=== PATIENT | female | born 1990 | race Caucasian/White ===

== ENCOUNTER 2023-11-23 02:56 | Emergency (ER) | payer SELFPAY ==
[2023-11-23 03:02] VITALS: BP 156/92; PULSE 88; RESP 18; TEMP 36.8; O2SAT 96; BMI 45.4
--- NOTE | 2023-11-23 03:24 | ED_ITS ---
HPI - Dental/Oral General: Chief complaint: Dental/Oral Stated complaint: Tooth Ache Time Seen by Provider: 11/23/23 03:12 History of Present Illness: 32-year-old female presents emergency de partment with complaints of dental pain to the right lower jaw. She states this has been ongoing for the previous 6 months. She states she has not seen a dentist as she does not have any money to see a dentist. Patient states that her pain is a 10 out of 10 and constant. She states that it is worse if she tries to drink anything or eat anything. She denies difficulty with swallowing or breathing. She denies fevers chills or night sweats. Review of Systems General: Reports: 10 or more systems reviewed and unremarkable except in HPI and below ENMT: Reports: dental pain Physical Exam Narrative: EXAM NARRATIVE: Constitutional: the patient appears well nourished and of normal development. Vital signs as documented. No acute distress at present. Alert and oriented-to person, place, time and situation. Head, eyes, ears, nose, mouth, throat: Normocephalic, atraumatic. Pupils-equal, round, reactive to light. No scleral icterus. Normal-appearing external ears. Normal appearing nasal turbinates, no drainage. No obvious oral lesions, posterior oropharynx without erythema or exudates. Significant dental adonay to tooth #32. No gingivitis, no periapical abscess. Neck: Supple, trachea is midline, no lymphadenopathy. Lungs: clear to auscultation to all lung busch. Symmetrical rise and fall of chest, no obvious signs of increased work of breathing at present. Cardiac: Regular rate and rhythm, positive S1, S2. No murmurs, rubs or gallops that I can appreciate Abdomen: Soft, non-tender to palpation, normal active bowel sounds to all quadrants. Extremities: 2+ pulses in the upper extremities that are equal bilaterally, 2+ pulses in the lower extremities that are equal bilaterally. Non-edematous. Moves all extremities well, sensation to all extremities are noted. Skin: Warm, dry, intact. Course Vital Signs: Vital signs: Vital Signs Temperature 98.3 F 11/23/23 03:02 Pulse Rate 83 11/23/23 03:37 Respiratory Rate 16 11/23/23 03:37 Blood Pressure 146/102 11/23/23 03:37 Pulse Oximetry 97 11/23/23 03:37 Oxygen Delivery Me thod Room Air 11/23/23 03:02 MDM - Dental/Oral Medical Decision Making Physical exam completed and documented I will provide lidocaine jelly to the tooth of concern I will also provide her Toradol and written prescription for pain medication. Medical Records I reviewed the patient's medical records. All radiology interpretation(s) finalized by discharge Discharge Plan Discharge Patient Disposition: Home Clinical Impression: Toothache, Dental caries Condition: Stable Prescriptions: New hydrocodone-acetaminophen 10-325 mg tablet 1 tab PO Q6H PRN (Reason: pain) Qty: 14 0RF No Action famotidine 40 mg tablet 40 mg PO DAILY 5 Days Qty: 5 0RF prednisone 20 mg tablet 40 mg PO DAILY 5 Days Qty: 10 0RF Discharge Orders: Discharge ED (Routine); Ordered 11/23/23 Ordered By: Shaun Zamorano Discharge Diet: Usual diet Discharge Activity: Resume usual activity Patient Instructions: Opioid Safety, Pain Management Coding Level of Care Code ED [facility] Electronic for Mich Artis
[2023-11-23 03:37] VITALS: BP 146/102; PULSE 83; RESP 16; O2SAT 97
[2023-11-23] MEDS: ketorolac 60 mg/2 mL INJ IM (03:37)
[2023-11-23] MEDS: lidocaine 2% viscous 15 mL UDC MUCOUS MEM (04:11)
== END 2023-11-23 04:11 | disposition home or self-care (01) ==
PROVIDERS: Emergency Provider Internal Medicine
DX: K02.9 Dental caries, unspecified (principal)
CPT/HCPCS: 96372; 99284; J1885